=== PATIENT | male | born 1965 | race Caucasian/White ===

== ENCOUNTER 2019-12-20 05:13 | Emergency (ER) | payer OTHER, SELFPAY ==
[2019-12-20 05:14] VITALS: BP 146/111; PULSE 69; RESP 16; TEMP 36.8; O2SAT 97; BMI 35.0
--- NOTE | 2019-12-20 05:23 | CT_ITS ---
STUDY: CT ABDOMEN AND PELVIS WITH CONTRAST REASON FOR EXAM: Male, 54 years old. 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 IV 100mL Isovue-300 was administered. Sagittal and coronal images were reconstructed. Individualized dose optimization techniques were used for this CT. COMPARISON: CT pelvis noncontrast 11/29/2014 FINDINGS: The visualized lung bases are unremarkable. The visualized portions of the heart are within normal limits. Liver is low attenuated. Distended gallbladder containing a calculus in the gallbladder neck is 1.5 cm. There is no wall thickening, abnormal wall enhancement, intra or extrahepatic biliary ductal dilatation or choledocholithiasis. Normal spleen. Accessory splenic tissue. Normal pancreas. Small adrenal nodule left 1.1 cm probable a adenoma. Mild right hydronephrosis and hydroureter with perirenal and ureteral stranding and a nonobstructing calculus in the distal right ureter measuring 0.3 cm less than 2 cm superior to the UVJ. Small subcentimeter right inferior renal pole cyst. Left adrenal cyst of 2 cm and a exophytic 0.6 cm residual hyperattenuation in the upper pole cortex most likely a hemorrhagic cyst. Normal visualized stomach. Normal small intestine. Normal colon. The appendix is visualized and appears normal. Normal abdominal aorta. Normal inferior vena cava. Normal retroperitoneum. Normal urinary bladder. There are prostatic calcifications. There is a left-sided inguinal hernia containing adipose tissue. Normal osseous structures. CT/Abdomen/Pelvis W IV Cont ONLY IMPRESSION: Mild right hydronephrosis and hydroureter with an obstructing distal right ureteral calculus. Bilateral renal cysts, cholelithiasis, fat-containing left inguinal hernia, prostate calcification and presumed small left adrenal adenoma and hepatic steatosis felt to be nonacute findings. Electronically Signed: Kesha Stevenson MD at 7:17 EDT , Service support ,
[2019-12-20] MEDS: Ondansetron 4 MG/2 ML Vial IV (05:35)
[2019-12-20] MEDS: 0.9% Normal Saline 1,000 ML 1000 ML IV (05:38)
[2019-12-20] MEDS: Morphine 4 MG/ML Syringe 6 MG IV (05:38)
--- NOTE | 2019-12-20 05:38 | ED.VIS.GI ---
History of Present Illness Informant: Patient - Abdominal Pain/Flank Pain Onset: Today Context: Sudden Onset Timing: Continuous Quality: Sharp Location: - - Lower abdomen, right greater than left Worsened by: Car ride Relieved by: Nothing - Nausea/Vomiting/Emesis GI Symptom: Nausea. Negative for: Vomiting - Diarrhea/Melena/Hematochezia GI Symptom: Negative for: Diarrhea, Melena, Hematochezia Narrative: Patient is a 54-year-old male history of rheumatoid arthritis and hypertension as well as remote history of kidney stones presenting with lower abdominal pain. Patient states about 2 hours prior to arrival he woke up with lower abdominal pain. Seems to be diffuse in his lower abdomen but slightly worse on the right. It radiates to his back bilaterally. He denies any radiation of pain down to his groin or testicles. He states he has associated nausea and sweating from the pain. He denies any vomiting. He states he did have a small bowel movement which was normal. He is not urinated since this happens but denies any urinary symptoms. He is he felt fine when he went to bed last night. He states he had small kidney stone in the past but did not feel anything like this. Patient denies any history of abdominal surgeries. Denies any fever or chills. No other complaints at this time. <Matilde Lane - Last Filed: 12/20/19 07:05> <Carson Walter - Last Filed: 12/20/19 08:09> Chief Complaint: Abd Pain Past Medical History Past Medical History: - - Rheumatoid arthritis, hypertension Surgical History: noncontributory Smoking Status: Never smoker <Matilde Lane - Last Filed: 12/20/19 07:05> <Carson Walter - Last Filed: 12/20/19 08:09> - Allergies and Home Meds Allergies/Adverse Reactions: Allergies infliximab [From Remicade] Allergy (Verified 12/20/19 05:19) Other oxacillin Allergy (Verified 12/20/19 05:19) Rash Primary Care Physician: Bandar Lakhani MD [STAFF PHYSICIAN] - King Sun MD [Primary Care Provider] - Review of Systems General: Reports: Sweats. Denies: Chills, Fever Eyes: Denies: Visual changes - bilaterally, Diplopia ENT: Denies: Rhinorrhea, Sore throat Cardiovascular: Denies: Chest pain, Palpitations Respiratory: Denies: Dyspnea, Cough, Dyspnea on exertion Gastrointestinal: Reports: Abdominal pain, Nausea. Denies: Vomiting, Diarrhea, Melena, Hematochezia Genitourinary: Denies: Dysuria, Hematuria, Frequency Musculoskeletal: Reports: Back pain. Denies: Extremity Pain Skin: Denies: Rash, Wounds Neurological: Denies: Headache, Weakness, Numbness <Matilde Lane - Last Filed: 12/20/19 07:05> Physical Exam Vital Signs/Narrative: Vital Signs Temp Pulse Resp BP Pulse Ox 12/20/19 05:14 98.3 F 69 16 146/111 H 97 Inital Vital Signs reviewed: Yes General: Well nourished, Well developed, No Acute Distress Head: Normocephalic, Atraumatic Eyes: Perrl, EOMI ENT: Moist mucous membranes, No rhinorrhea Neck: Supple, Nontender Cardiovascular: Regular rate, Regular rhythm, No murmurs Respiratory: No distress, CTA bilaterally, Chest nontender Abdomen: Soft, Nondistended, Normal bowel sounds, Tender, - - Pain at McBurney's point. Negative for: Guarding, Rebound tenderness, Rovsig's sign, Gruber's sign Back: Nontender, Normal Inspection. Negative for: CVA tenderness, Spinal tenderness Extremities: Nontender, No edema Skin: Normal color, No rash Neurological: Alert, Oriented x3, Cranial nerves II-XII grossly intact, Normal Strength, Normal Sensation Psychological: Normal affect, Normal Mood <Matilde Lane - Last Filed: 12/20/19 07:05> Vital Signs/Narrative: Vital Signs Temp Pulse Resp BP Pulse Ox 12/20/19 07:58 74 18 125/86 H 95 12/20/19 05:14 98.3 F 69 16 146/111 H 97 <Carson Walter - Last Filed: 12/20/19 08:09> Diagnostic/Tx/Re-eval CT: Abdomen and Pelvis Laboratory Data 12/20/19 12/20/19 12/20/19 05:28 05:28 05:28 WBC 4.3 L RBC 4.58 L Hgb 14.5 Hct 41.5 MCV 90.6 MCH 31.7 MCHC 34.9 RDW Std Deviation 39.0 RDW Coeff of [place] 11.8 Plt Count 144 L MPV 9.5 Immature Gran % (Auto) 0.200 Neut % (Auto) 53.1 Lymph % (Auto) 36.1 [place]ye % (Auto) 8.9 Eos % (Auto) 1.2 Baso % (Auto) 0.5 Absolute Neuts (auto) 2.3 Absolute Lymphs (auto) 1.55 Nucleated RBC % 0 Sodium 140 Potassium 3.2 L Chloride 109 H Carbon Dioxide 23.0 Anion Gap 8 BUN 13 Creatinine 1.08 Estim Creat Clear Calc 84.25 Est GFR (MDRD) Af Amer 92 Est GFR (MDRD) Non-Af 76 BUN/Creatinine Ratio 12.0 Glucose 148 H Lactic Acid 1.9 Calcium 8.0 L Total Bilirubin 0.60 AST 38 H ALT 80 H Alkaline Phosphatase 51 Total Protein 7.3 Albumin 3.5 Globulin 3.8 Albumin/Globulin Ratio 0.9 Lipase 138 - Medical Decision Making Evaluate for sudden onset of lower abdominal pain. Is more localized on the right but patient feels it is diffuse and also in his back. Patient has had pain in his right lower quadrant so I did order CT with IV contrast to look for kidney stone as well as appendicitis. CT interpreted by myself is consistent with distal ureteral stone on the right. This is consistent with his presentation. Patient be treated as a kidney stone with follow-up with urology and symptomatic management. He has normal kidney function at this time. <Matilde Lane - Last Filed: 12/20/19 07:05> Clinical Impression(s) from Imaging Studies Abdomen/Pelvis CT 12/20/19 05:23 IMPRESSION: Mild right hydronephrosis and hydroureter with an obstructing distal right ureteral calculus. Bilateral renal cysts, cholelithiasis, fat-containing left inguinal hernia, prostate calcification and presumed small left adrenal adenoma and hepatic steatosis felt to be nonacute findings. Electronically Signed: Kesha Stevenson MD at 7:17 EDT , Service support , Laboratory Tests 12/20/19 12/20/19 12/20/19 Range/Units 07:00 05:28 05:28 Urine Color Yellow (Yellow) Urine Clarity Sl. Cloudy (Clear) Urine pH 5.0 (5.0 - 8.0) Ur Specific [place] 1.020 (1.002-1.030) Urine Protein 30 H (Negative) mg/dl Urine Glucose (UA) Normal (Normal) mg/dl Urine Ketones 5 H (Negative) mg/dl Urine Occult Blood 250 H (Negative) /ul Urine Nitrite Negative (Negative) Urine Bilirubin Negative (Negative) mg/dL Urine Urobilinogen Normal (Normal) mg/dl Ur Leukocyte Esterase 25 H (Negative) /ul Urine RBC 25-50 SEEN (0-5) /hpf Urine WBC 0-5 SEEN (0-5) /hpf Ur Squamous Epith Cells 0-5 SEEN (0-5) /hpf Urine Bacteria 1+ (None Seen) /hpf Urine Mucus 0 SEEN (<or=2+) /hpf - Medical Decision Making Patient checked out to me after shift change. I reevaluated him, his symptoms are well controlled at this time. He will be sent home with urine strainers, appropriate instructions, prescriptions that were written by Dr. Lane. I discussed expectant management with the patient, all questions were answered at the bedside he is comfortable with this overall plan and understands reasons to return. <Carson Walter - Last Filed: 12/20/19 08:09> ED Disposition <Matilde Lane - Last Filed: 12/20/19 07:05> <Carson Walter - Last Filed: 12/20/19 08:09> - Plan for ED Patient: Disposition: Home or Assisted Living Diagnosis: Kidney stone on right side, Renal colic on right side Instructions: ED Renal Stone w Colic Prescriptions: Tamsulosin HCl [Flomax] 0.4 mg PO DAILY #7 cap Prescription Printed Ibuprofen [Motrin] 600 mg PO Q6H PRN PRN #20 tab PRN Reason: Pain Score 1-10/10 Prescription Printed Oxycodone HCl/Acetaminophen [Percocet 5/325] 1 tab PO Q6H PRN PRN 3 Days #12 tab PRN Reason: Pain Prescription Printed Ondansetron [Zofran Odt] 4 mg PO Q8H PRN PRN #10 tab PRN Reason: Nausea Prescription Printed Referrals: King Sun MD [Primary Care Provider] - Bandar Lakhani MD [STAFF PHYSICIAN] -
[2019-12-20] MEDS: Morphine 2 MG/ML Syringe IV (05:43)
[2019-12-20 05:47] LABS: Absolute Lymphocyte Count 1.55 X10^3/uL (0.83-4.51); Absolute Neutrophil Count 2.3 X10^3/uL (2.0-7.7); Basophil# 0.02 X10^3/uL; Basophil% 0.5 % (0-1); Eosinophil# 0.05 X10^3/uL; Eosinophils% 1.2 % (0-5); Hematocrit 41.5 % (40-54); Hemoglobin 14.5 g/dL (13.0-16.5); Lymphocyte # 1.55 X10^3/ul (4.0); Lymphocyte % 36.1 % (19-41); Mean Corp Hgb Conc 34.9 g/dL (32-36); Mean Corpuscular Hgb 31.7 pg (27.0-32.0); Mean Corpuscular Volume 90.6 fL (80-94); Mean Platelet Vol. 9.5 fl (6.2-12.0); Monocyte# 0.38 X10^3/uL; Monocyte% 8.9 % (0-10); NRBC Flagged by Analyzer 0 % (0-5); Neutrophil # 2.28 X10^3/uL (2.7-7.7); Neutrophil % 53.1 % (47-70); Platelet Count 144 K/mm3 (150-450); RBC Distribution Width CV 11.8 % (11.6-14.6); Red Blood Count 4.58 M/mm3 (4.6-6.2); White Blood Count 4.3 K/mm3 (4.4-11.0)
[2019-12-20 06:03] LABS: ALB/GLOB Ratio 0.9 RATIO (0.9-2.4); AST(SGOT) 38 U/L (15-37); Alanine Aminotransfer ALT/SGPT 80 U/L (16-61); Albumin, Serum 3.5 g/dL (3.2-5.0); Alkaline Phosphatase 51 U/L (45-117); Anion Gap 8 (5-15); BUN 13 mg/dL (7-18); Chloride 109 mmol/L (98-107); Creatinine, Serum 1.08 mg/dL (0.70-1.30); EST Glomerular Filtration Rate 76 mL/min (>60); Est Glom Filt Rate - Afr Amer 92 mL/min (>60); Estimated Creatinine Clearance 84.25 ml/min; Globulin 3.8 g/dL (2.2-4.2); Glucose 148 mg/dL (74-106); Lipase 138 U/L (73-393); Potassium 3.2 mmol/L (3.5-5.1); Protein, Total 7.3 g/dL (6.4-8.2); Sodium Level 140 mmol/L (136-145)
[2019-12-20 06:26] LABS: Lactic Acid 1.9 mmol/L (0.4-1.9)
[2019-12-20] MEDS: Morphine 4 MG/ML Syringe IV (07:11)
[2019-12-20 07:21] LABS: Mucous, Urine 0 SEEN /hpf (<or=2+)
[2019-12-20 07:34] LABS: Color, Urine Yellow (Yellow); Glucose, Dipstick Normal (Normal); Ketone-Dipstick 5 mg/dl (Negative); Leukocyte Esterase-Dipstick 25 /ul (Negative); Nitrite-Dipstick Negative (Negative); Occult Blood-Urine 250 /ul (Negative); Protein-Dipstick 30 mg/dl (Negative); Urine Bilirubin Dipstick Negative (Negative); Urine Clarity Sl. Cloudy (Clear); Urine Urobilinogen Normal (Normal)
[2019-12-20] MEDS: Ketorolac 15 MG/ML Vial IV (07:36)
[2019-12-20] MEDS: oxyCODONE 5 MG Tablet PO (07:36)
[2019-12-20 07:49] LABS: Bacteria 1+ /hpf (None Seen); Red Blood Cells-Urine 25-50 SEEN /hpf (0-5); Squamous Epithelial Cells - UA 0-5 SEEN /hpf (0-5); White Blood Cells 0-5 SEEN /hpf (0-5)
[2019-12-20 07:58] VITALS: BP 125/86; PULSE 74; RESP 18; O2SAT 95
== END 2019-12-20 08:27 | disposition home or self-care (01) ==
PROVIDERS: Emergency Provider Emergency Medicine; PCP Family Medicine
DX: N20.0 Calculus of kidney (principal); I10 Essential (primary) hypertension; M06.9 Rheumatoid arthritis, unspecified; Z79.82 Long term (current) use of aspirin; Z87.442 Personal history of urinary calculi
CPT/HCPCS: 74177; 80053; 81001; 83605; 83690; 85025; 96361; 96374; 96375; 96376; 99285; J7030; Q9967; A4216; J2405

== ENCOUNTER → 2020-05-20 17:08 | Outpatient (CLI) | payer OTHER, SELFPAY | PROVIDERS: PCP Family Medicine; Referring Provider Family Medicine; Visit Provider Family Medicine | DX: Z20.822 Contact with and (suspected) exposure to COVID-19 (principal) | CPT/HCPCS: 87635; C9803; U0005; U0003 ==